=== PATIENT | male | born 1970 | race Caucasian/White ===

== ENCOUNTER 2025-06-29 11:17 | Emergency (ER) | payer OTHER ==
[~2025-06-29] VITALS: Ht 182.9 cm; Wt 81.0 kg
[2025-06-29 11:23] VITALS: TEMP 36.7; O2SAT 98
[2025-06-29] MEDS: DOXYCYCLINE HYCLATE 100MG CAPSULE PO ONE (15:13)
[2025-06-29 15:15] VITALS: BP 132/79; PULSE 84; RESP 17; O2SAT 100
== END 2025-06-29 15:17 | disposition home or self-care (01) ==
LOC: ER 11:17
DX: S30.85 Superficial foreign body of abdomen, lower back, pelvis and external genitals (principal); W57.XXXD Bitten or stung by nonvenomous insect and other nonvenomous arthropods, subsequent encounter
CPT/HCPCS: 99284